=== PATIENT | female | born 1955 ===

== ENCOUNTER 2021-10-16 07:51 | Outpatient (RCR) | payer BC, SELFPAY ==
[2021-10-16 10:12] VITALS: BP 148/73; PULSE 63; RESP 18; TEMP 35.9; O2SAT 98
[2021-10-16] MEDS: ACETAMINOPHEN 325 MG TABLET 650 MG PO (10:13)
[2021-10-16] MEDS: FAMOTIDINE 20 MG TABLET PO (10:13)
[2021-10-16] MEDS: diphenhydrAMINE HCl CAP 25 MG CAPSULE PO (10:13)
--- NOTE | 2021-10-17 08:26 | PC.NURSE ---
Called Isaura and she stated she is doing great this morning and has no questions for us at this [email or web address]
== END 2021-10-16 17:00 ==
LOC: AMCINF 07:51
PROVIDERS: PCP Internal Medicine; Visit Provider Internal Medicine Hematology & Oncology
DX: U07.1 COVID-19 (principal)
CPT/HCPCS: A9270; M0245; Q0245